=== PATIENT | female | born 1935 | race Caucasian/White ===

== ENCOUNTER 2018-07-08 21:08 | Inpatient (IN) | payer MEDICARE, OTHER ==
[~2018-07-08] VITALS: Ht 162.6 cm; Wt 82.6 kg
[2018-07-08] MEDS ORDERED: NITROGLYCERIN OINT 1GM/INCH UDPKT TD ONE (22:15)
[2018-07-08] MEDS ORDERED: FUROSEMIDE 40MG/4ML VIAL IV ONE (22:15)
[2018-07-08 23:14] LABS: BASOPHILS % 0.7 % (0.0-2.0); EOSINOPHILS % 0.4 % (0.0-5.0); HEMATOCRIT. 44.2 % (36.0-48.0); HEMOGLOBIN. 14.4 g/dL (12.0-16.0); LYMPHOCYTES % 15.3 % (20.0-50.0); MEAN CORPUSCULAR HEMOGLOBIN 28.9 pg (28.0-32.0); MEAN CORPUSCULAR VOLUME 88.6 fL (81.0-99.0); MONOCYTES % 7.6 % (2.0-8.0); PLATELET 197 x1000/uL (130-400); RED CELL DISTRIBUTION WIDTH 16.3 % (11.6-14.6)
[2018-07-08 23:20] LABS: CHLORIDE 110 mEq/L (98-107)
[2018-07-09 00:15] LABS: CLARITY URINE CLEAR (CLEAR); COLOR URINE YELLOW (YELLOW); KETONES URINE NEGATIVE (NEGATIVE); LEUKOCYTE ESTERASE URINE 1+ (NEGATIVE); NITRITE URINE NEGATIVE (NEGATIVE); OCCULT BLOOD URINE TRACE (NEGATIVE); PROTEIN URINE 1+ (NEGATIVE); SPECIFIC GRAVITY URINE 1.011 (1.005-1.030); UROBILINOGEN URINE 0.2 E.U./dL (0.2-1.0)
[2018-07-09] MEDS ORDERED: CEFTRIAXONE 1 G PREMIX 50 ML IV ONE (00:30)
[2018-07-09] MEDS ORDERED: ASPIRIN 81MG TABLET PO ONE (00:30)
[2018-07-09 04:45] VITALS: BP 135/94
[2018-07-09] MEDS ORDERED: ONDANSETRON HCL 4MG/2ML INJ IV PRN (05:15)
[2018-07-09] MEDS ORDERED: CLONIDINE 0.1MG TABLET PO PRN (05:15)
[2018-07-09] MEDS ORDERED: ACETAMINOPHEN 325MG TABLET PO PRN (05:15)
[2018-07-09] MEDS ORDERED: MAGNESIUM/ALUMINUM HYDROXIDE/SIMETHICONE 30ML UDC PO PRN (05:15)
[2018-07-09] MEDS ORDERED: COR12 MT (05:33)
[2018-07-09] MEDS ORDERED: BENA1TAB19 MT (05:33)
[2018-07-09] MEDS ORDERED: WARF2.5T47 MT (05:34)
[2018-07-09 08:30] VITALS: BP 138/96
[2018-07-09] MEDS ORDERED: INFLUENZA VIRUS VACCINE(AFLURIA) 0.5ML SYR IM ONE (09:00)
[2018-07-09] MEDS ORDERED: MAGNESIUM/ALUMINUM HYDROXIDE/SIMETHICONE 30ML UDC PO NR (11:15)
[2018-07-09 11:20] LABS: BASOPHILS % 0.9 % (0.0-2.0); EOSINOPHILS % 0.3 % (0.0-5.0); HEMATOCRIT. 46.2 % (36.0-48.0); HEMOGLOBIN. 14.9 g/dL (12.0-16.0); LYMPHOCYTES % 14.5 % (20.0-50.0); MEAN CORPUSCULAR HEMOGLOBIN 28.5 pg (28.0-32.0); MEAN CORPUSCULAR VOLUME 88.4 fL (81.0-99.0); MEAN PLATELET VOLUME 10.3 fl (7.4-10.4); MONOCYTES % 8.7 % (2.0-8.0); NEUTROPHILS % 75.6 % (40.0-76.0); PLATELET 174 x1000/uL (130-400); RED BLOOD CELL COUNT 5.23 mill/uL (4.2-5.4); RED CELL DISTRIBUTION WIDTH 16.3 % (11.6-14.6)
[2018-07-09] MEDS: PANTOPRAZOLE 40MG DR TABLET PO SCH (11:55)
[2018-07-09] MEDS: HYDROCHLOROTHIAZIDE 25MG TABLET PO SCH (11:55)
[2018-07-09] MEDS: FUROSEMIDE 40MG/4ML VIAL IVP SCH (11:55)
[2018-07-09] MEDS: BENAZEPRIL 10MG TABLET PO SCH (11:56)
[2018-07-09 12:20] VITALS: BP 128/88
[2018-07-09] MEDS: NYSTATIN POWDER 15GM TOP SCH ×2 (13:41→15:34)
[2018-07-09] MEDS ORDERED: VERAPAMIL HCL 2.5 MG/1 ML 2ML VIAL IV PRN (14:15)
[2018-07-09 14:46] LABS: PHOSPHORUS 3.5 mg/dL (2.5-4.9)
[2018-07-09] MEDS: LORAZEPAM 0.5MG TABLET PO PRN (15:33)
[2018-07-09 16:01] LABS: PROTHROMBIN TIME 48.5 sec (9.1-11.1)
[2018-07-09 16:29] VITALS: BP 120/84
[2018-07-09] MEDS ORDERED: WARFARIN SODIUM 2.5MG TABLET PO SCH (18:00)
[2018-07-09 20:00] VITALS: BP 128/81
[2018-07-09] MEDS: CARVEDILOL 12.5MG TABLET PO SCH (20:15)
[2018-07-10] VITALS (12 sets, daily range): BP systolic 100–126; BP diastolic 50–74
[2018-07-10 06:51] LABS: BASOPHILS % 0.9 % (0.0-2.0); EOSINOPHILS % 1.7 % (0.0-5.0); HEMATOCRIT. 40.7 % (36.0-48.0); HEMOGLOBIN. 13.2 g/dL (12.0-16.0); LYMPHOCYTES % 14.3 % (20.0-50.0); MEAN CORPUSCULAR HEMOGLOBIN 28.3 pg (28.0-32.0); MEAN CORPUSCULAR VOLUME 87.4 fL (81.0-99.0); MEAN PLATELET VOLUME 9.8 fl (7.4-10.4); MONOCYTES % 10.8 % (2.0-8.0); NEUTROPHILS % 72.3 % (40.0-76.0); PLATELET 157 x1000/uL (130-400); RED BLOOD CELL COUNT 4.65 mill/uL (4.2-5.4); RED CELL DISTRIBUTION WIDTH 16.7 % (11.6-14.6)
[2018-07-10] MEDS: PANTOPRAZOLE 40MG DR TABLET PO SCH (06:51)
[2018-07-10 07:02] LABS: INR 3.2; PARTIAL THROMBOPLASTIN TIME 34.7 sec (23.4-31.0); PROTHROMBIN TIME 31.4 sec (9.1-11.1)
[2018-07-10] MEDS: HYDROCHLOROTHIAZIDE 25MG TABLET PO SCH (08:06)
[2018-07-10] MEDS: CARVEDILOL 12.5MG TABLET PO SCH ×2 (08:06→21:13)
[2018-07-10] MEDS: BENAZEPRIL 10MG TABLET PO SCH ×3 (08:06→14:45)
[2018-07-10] MEDS: FUROSEMIDE 40MG/4ML VIAL IVP SCH (08:06)
[2018-07-10] MEDS: NYSTATIN POWDER 15GM TOP SCH ×3 (08:08→18:17)
[2018-07-10] MEDS ORDERED: MAGNESIUM 2 G PREMIX 50 ML IV ONE (11:00)
[2018-07-10] MEDS ORDERED: MAGNESIUM SULFATE 2 GM in DEXTROSE 5% WATER 46 ML IV SCH (12:00)
[2018-07-10] MEDS ORDERED: POTASSIUM CHLORIDE 20MEQ TABLET SR PO SCH (13:30)
[2018-07-10 16:46] LABS: BG BASE EXCESS 4.5 mmol/L (-2.0-2.0); BG CARBOXYHEMOGLOBIN 1.1 % (0.5-1.5); BG DEOXYHEMOGLOBIN 3.4 % (0.0-5.0); BG METHEMOGLOBIN 0.6 % (0.0-1.5); BG OXYGEN SATURATION 96.5 % (92.0-98.5); BG OXYHEMOGLOBIN 94.9 % (94.0-97.0); BG PCO2 33.8 mmHg (35.0-45.0); BG PH 7.521 (7.350-7.450); BG PO2 84.5 mmHg (75.0-100.0); BG SAMPLE SITE RIGHT BRACHIAL; BG TOTAL HEMOGLOBIN 14.3 g/dL (12.0-18.0); BG VENT MODE ROOM AIR
[2018-07-10] MEDS: LORAZEPAM 0.5MG TABLET PO PRN (21:30)
[2018-07-11 04:25] VITALS: BP 104/68
[2018-07-11] MEDS: PANTOPRAZOLE 40MG DR TABLET PO SCH (06:51)
[2018-07-11] MEDS: CARVEDILOL 12.5MG TABLET PO SCH (08:24)
[2018-07-11] MEDS: BENAZEPRIL 10MG TABLET PO SCH (08:25)
[2018-07-11] MEDS: NYSTATIN POWDER 15GM TOP SCH ×3 (08:26→18:07)
[2018-07-11 08:50] VITALS: BP 117/80
[2018-07-11] MEDS: IPRATROPIUM/ALBUTEROL 0.5-3(2.5)MG/3ML NEB INH PRN ×2 (09:08→14:57)
[2018-07-11 10:21] LABS: BASOPHILS % 0.6 % (0.0-2.0); EOSINOPHILS % 1.5 % (0.0-5.0); HEMATOCRIT. 43.4 % (36.0-48.0); HEMOGLOBIN. 14.3 g/dL (12.0-16.0); LYMPHOCYTES % 10.8 % (20.0-50.0); MEAN CORPUSCULAR HEMOGLOBIN 28.8 pg (28.0-32.0); MEAN CORPUSCULAR VOLUME 87.5 fL (81.0-99.0); MEAN PLATELET VOLUME 9.9 fl (7.4-10.4); MONOCYTES % 8.2 % (2.0-8.0); NEUTROPHILS % 78.9 % (40.0-76.0); PLATELET 184 x1000/uL (130-400); RED BLOOD CELL COUNT 4.95 mill/uL (4.2-5.4); RED CELL DISTRIBUTION WIDTH 16.3 % (11.6-14.6)
[2018-07-11 10:28] LABS: INR 2.3; PROTHROMBIN TIME 22.8 sec (9.1-11.1)
[2018-07-11 12:00] VITALS: BP 95/61
[2018-07-11] MEDS ORDERED: GUAIFENESIN 200MG/10ML SUGAR FREE UDC PO PRN (12:00)
[2018-07-11 16:31] VITALS: BP 103/65
[2018-07-11] MEDS ORDERED: WARFARIN SODIUM 1MG TABLET PO SCH (18:00)
[2018-07-11 19:36] VITALS: BP 103/65
[2018-07-11 20:00] VITALS: BP 111/78
== END 2018-07-11 21:10 | DRG 291 ==
LOC: ER 22:27 → 6WST 07-09 00:45 → EDBEDREQDT 07-09 00:49 → EDBEDREQ 07-09 00:49 → EDBEDREQTM 07-09 00:49 → ENRESERV 07-09 02:17
PROVIDERS: ADMIT Internal Medicine; ATTEND Internal Medicine
DX: I11.0 Hypertensive heart disease with heart failure (principal); J96.00 Acute respiratory failure, unspecified whether with hypoxia or hypercapnia; N39.0 Urinary tract infection, site not specified; N17.9 Acute kidney failure, unspecified; D68.59 Other primary thrombophilia; D68.9 Coagulation defect, unspecified; E66.2 Morbid (severe) obesity with alveolar hypoventilation; I50.43 Acute on chronic combined systolic (congestive) and diastolic (congestive) heart failure; I42.0 Dilated cardiomyopathy; I27.20 Pulmonary hypertension, unspecified; I48.2 Chronic atrial fibrillation; E87.6 Hypokalemia; B37.2 Candidiasis of skin and nail; E83.42 Hypomagnesemia; F41.9 Anxiety disorder, unspecified; T50.2X5A Adverse effect of carbonic-anhydrase inhibitors, benzothiadiazides and other diuretics, initial encounter; Z68.31 Body mass index [BMI] 31.0-31.9, adult; Z79.01 Long term (current) use of anticoagulants; Z82.49 Family history of ischemic heart disease and other diseases of the circulatory system; Z85.3 Personal history of malignant neoplasm of breast; Z90.49 Acquired absence of other specified parts of digestive tract; Z90.710 Acquired absence of both cervix and uterus; Z60.2 Problems related to living alone; Z79.899 Other long term (current) drug therapy; Z92.3 Personal history of irradiation; Y92.89 Other specified places as the place of occurrence of the external cause; N28.1 Cyst of kidney, acquired
CPT/HCPCS: 36415; 36600; 71045; 74176; 80048; 80061; 82375; 82805; 83735; 83880; 84100; 84134; 84443; 84484; 90686; 93005; 93306; 93970; 94640; 96365; 96375; 97162; 99285; J0696; J1940; J3475; J7050; J7060; J7620